=== PATIENT | female | born 1955 | race Caucasian/White ===

== ENCOUNTER 2020-08-25 19:41 | Emergency (ER) | payer OTHER ==
[2020-08-25 20:59] LABS: BASOPHIL 0.5 % (0-2); EOSINOPHIL 1.7 % (0-7); HCT 48.7 % (37.0-47.0); HGB 16.1 g/dl (12.5-16.0); LYMPHOCYTE 20.5 % (15-48); MCH 30.4 pg (25.0-31.0); MCHC 33.1 g/dL (32.0-36.0); MCV 92.1 fL (78.0-100.0); MONOCYTE 8.8 % (0-12); MPV 10.5 fL (6.0-9.5); NEUTROPHIL 68.2 % (41-80); NRBC 0; PLT 394 K/uL (150-400); RBC 5.29 M/uL (4.20-5.40); RDW 13.4 % (11.5-14.0); WBC 14.5 K/uL (4.0-10.5)
[2020-08-25 21:11] LABS: ALBUMIN 3.9 g/dL (3.4-5.0); BILIRUBIN - TOTAL 0.3 mg/dL (0.2-1.0); BUN/CREAT RATIO (CALC) 17.2 RATIO; CREATININE 0.87 mg/dL (0.51-0.95); GLOBULIN (CALCULATION) 3.8 g/dL; POTASSIUM 3.2 mmol/L (3.5-5.1); TOTAL PROTEIN 7.7 g/dL (6.4-8.2)
[2020-08-25] MEDS ORDERED: AMOXICILLIN875 MG PO (22:19)
[2020-08-25] MEDS ORDERED: MUCINEX600 MG PO (22:19)
[2020-08-25] MEDS ORDERED: VENTOLIN HFA18 GM INH (22:19)
== END 2020-08-25 22:33 | disposition home or self-care (01) ==
LOC: FER 19:41
PROVIDERS: Emergency Medicine
DX: J20.9 Acute bronchitis, unspecified (principal); J01.90 Acute sinusitis, unspecified; I10 Essential (primary) hypertension; F17.210 Nicotine dependence, cigarettes, uncomplicated; Z88.1 Allergy status to other antibiotic agents
CPT/HCPCS: 36415; 71046; 80053; 84145; 84484; 85025; 93005